=== PATIENT | male | born 1995 | race Two or more races ===

== ENCOUNTER 2020-03-30 19:59 | Emergency (ER) | payer BC ==
--- NOTE | 2020-03-30 20:09 | EDM.PDOC ---
ED HPI GENERAL MEDICAL PROBLEM - General Chief Complaint: Back Pain or Injury Stated Complaint: LOWER BACK PAIN Time Seen by Provider: 03/30/20 20:01 Source of Information: Reports: Patient History Limitations: Reports: No Limitations - History of Present Illness INITIAL COMMENTS - FREE TEXT/NARRATIVE: HISTORY AND PHYSICAL: History of present illness: Patient is a 25-year-old male who presents to the emergency room with complaints of lumbar back pain x2 months. He denies any injury, trauma or falls. Does not recall any events that precipitated the back pain, states it progressively has gotten worse. Pain does not radiate, but physical activity and movement aggravates it. He states over the past few weeks he has been using alcohol to alleviate his discomfort. He denies any weakness, numbness/tingling or saddle paresthesias. Denies any urinary or fecal incontinence. Patient denies any fever, chills, headache, change in vision, syncope or near syncope. Denies any chest pain, neck pain, shortness of breath or cough. Denies any GI or symptoms. Denies any testicular pain, swelling or redness. Review of systems: As per history of present illness and below otherwise all systems reviewed and negative. Past medical history: As per history of present illness and as reviewed below otherwise noncontributory. Surgical history: As per history of present illness and as reviewed below otherwise noncontributory. Social history: See social history for further information Family history: As per history of present illness and as reviewed below otherwise non contributory. Physical exam: General: Well-developed and well-nourished 25-year-old male. Alert and oriented. Nontoxic-appearing and in no acute distress. HEENT: Atraumatic, normocephalic, pupils equal and reactive bilaterally, negative for conjunctival pallor or scleral icterus, mucous membranes moist, TMs normal bilaterally, throat clear, neck supple, nontender, trachea midline. No drooling or trismus noted. No meningeal signs. No hot potato voice noted. Lungs: Clear to auscultation, breath sounds equal bilaterally, chest nontender. Heart: S1S2, regular rate and rhythm without overt murmur Abdomen: Soft, nondistended, nontender. Negative for masses or hepatosplenomegaly. Negative for costovertebral tenderness. Pelvis: Stable nontender. C-spine/Back: No pinpoint vertebral tenderness upon palpation. No crepitus, step-offs or obvious deformities. Bilateral paraspinous muscular tenderness to mid/lumbar region. Low back does feel tight to palpation. Patient is ambulatory into the emergency room without difficulty or deficit. Able to rock back on heels and walk on toes. Denies any urinary or fecal incontinence. Denies any numbness, tingling or saddle paresthesia. No concerns of serious infection, fracture or cord compression, or cauda equina syndrome. Deep tendon reflexes brisk bilaterally. Skin: Intact, warm, dry. No lesions or rashes noted. Extremities: Atraumatic, moves all extremities per self without difficulty or deficits, negative for cords or calf pain. Neurovascular unremarkable. Neuro: Awake, alert, oriented. Cranial nerves II through XII unremarkable. Cerebellum unremarkable. Motor and sensory unremarkable throughout. Exam nonfocal. Notes: Patient states he did not get any relief from the IM injections. Lidocaine patch applied to lumbar region. Vital signs remained stable. X-ray shows minimal narrowing at L5-S1. Otherwise spinal imaging is unremarkable. We did discuss the need for follow-up with his primary care provider, and he may need MRI at some point if discomfort continues. Currently has no neurological symptoms and will be suitable for discharge. Signs and symptoms that would prompt him to return to the emergency room were reviewed and discussed. Follow-up, medication and supportive care measures were reviewed and discussed. Voices understanding and is agreeable to plan of care. Denies any further questions or concerns at this time. Diagnostics: Lumbar x-ray Therapeutics: Norflex and Toradol IM, Lidoderm patch Prescription: Diclofenac, Lidoderm patch Impression: Lumbago Plan: 1. X-ray shows minimal narrowing at L5-S1. No fractures are noted. If you continue to have discomfort you should follow-up with your primary care provider as you may need an MRI. MRIs are not typically done through the emergency room so please follow-up to have this completed if you continue having pain. 2. When resting please lay on a flat firm surface. Limit your immobility to prevent muscle stiffness. Get up to ambulate/move around/gentle stretching multiple times throughout the day. May alternate heat and ice to the painful areas 3. Tylenol as needed for back pain. Diclofenac is an anti-inflammatory so do not take any additional NSAIDs with this medication, such as ibuprofen or Aleve. 4. Please follow-up with your primary care provider as we discussed. 5. Return to the ED as needed and as discussed. Definitive disposition and diagnosis as appropriate pending reevaluation and review of above. back Pain Score (Numeric/FACES): 10 - Related Data Allergies Allergy/AdvReac Type Severity Reaction Status Date / Time bee Allergy Swelling Uncoded 03/30/20 20:19 Home Meds: Home Meds . [No Known Home Meds] 03/30/20 [History] ED ROS GENERAL - Review of Systems Review Of Systems: Comprehensive ROS is negative, except as noted in HPI. ED EXAM,LOWER BACK PAIN/INJURY - Physical Exam Exam: See Below (See dictation) Course - Vital Signs Last Recorded V/S: Last Vital Signs Temp 97.6 F 03/30/20 20:05 Pulse 99 03/30/20 20:05 Resp 18 03/30/20 20:05 BP 137/83 03/30/20 20:05 Pulse Ox 97 03/30/20 20:05 - Orders/Labs/Meds Meds: Medications Discontinued Medications Generic Name Dose Route Start Last Admin Trade Name Marie PRN Reason Stop Dose Admin Ketorolac Tromethamine 60 mg 03/30/20 20:17 03/30/20 20:26 Toradol IM 03/30/20 20:18 60 mg ONETIME ONE Administration Lidocaine 700 mg 03/30/20 21:05 Lidoderm 5% TOP 03/30/20 21:06 ONETIME ONE Orphenadrine Citrate 60 mg 03/30/20 20:17 03/30/20 20:25 Norflex IM 03/30/20 20:18 60 mg ONETIME ONE Administration Departure - Departure Time of Disposition: 21:16 Disposition: Home, Self-Care 01 Clinical Impression: Lumbago Qualifiers: Chronicity: unspecified Back pain laterality: bilateral Sciatica presence: without sciatica Qualified Code(s): M54.5 - Low back pain - Discharge Information Instructions: Acute Back Pain, Adult Referrals: PCP,None [Primary Care Provider] - Forms: ED Department Discharge Additional Instructions: The following information is given to patients seen in the emergency department who are being discharged to home. This information is to outline your options for follow-up care. We provide all patients seen in our emergency department with a follow-up referral. The need for follow-up, as well as the timing and circumstances, are variable depending upon the specifics of your emergency department visit. If you don't have a primary care physician on staff, we will provide you with a referral. We always advise you to contact your personal physician following an emergency department visit to inform them of the circumstance of the visit and for follow-up with them and/or the need for any referrals to a consulting specialist. The emergency department will also refer you to a specialist when appropriate. This referral assures that you have the opportunity for follow-up care with a specialist. All of these measure are taken in an effort to provide you with optimal care, which includes your follow-up. Under all circumstances we always encourage you to contact your private physician who remains a resource for coordinating your care. When calling for follow-up care, please make the office aware that this follow-up is from your recent emergency room visit. If for any reason you are refused follow-up, please contact the [facility] Emergency Department at and asked to speak to the emergency department charge nurse. [facility] [address] [place] [id number] [place] [address] Thank you for choosing the [facility] emergency department in [place] for your medical needs today. It was a pleasure caring for you. You were seen in the emergency department for low back pain. 1. X-ray shows minimal narrowing at L5-S1. No fractures are noted. If you continue to have discomfort you should follow-up with your primary care provider as you may need an MRI. MRIs are not typically done through the emergency room so please follow-up to have this completed if you continue having pain. 2. When resting please lay on a flat firm surface. Limit your immobility to prevent muscle stiffness. Get up to ambulate/move around/gentle stretching multiple times throughout the day. May alternate heat and ice to the painful areas 3. Tylenol as needed for back pain. Diclofenac is an anti-inflammatory so do not take any additional NSAIDs with this medication, such as ibuprofen or Aleve. 4. Please follow-up with your primary care provider as we discussed. 5. Return to the ED as needed and as discussed. Sepsis Event Note (ED) - Focused Exam Vital Signs: Vital Signs Temp Pulse Resp BP Pulse Ox 03/30/20 20:05 97.6 F 99 18 137/83 97
[2020-03-30] MEDS ORDERED: Orphenadrine 60 MG/2 ML Inj IM ONE (20:17)
[2020-03-30] MEDS ORDERED: Ketorolac 60 MG/2 ML SDV IM ONE (20:17)
[2020-03-30] MEDS ORDERED: Lidocaine 5% 700 MG Patch TOP ONE (21:05)
--- NOTE | 2020-03-30 21:09 | CR ---
Lumbar spine: AP, lateral and coned-down lateral view centered to the lumbosacral junction were obtained. Vertebral body heights are maintained. Minimal disc space narrowing at L5-S1 is seen. Other disc spaces are preserved. Pedicles are intact. Visualized transverse and spinous processes are intact. No subluxation or acute fracture is seen. Impression: 1. Minimal narrowing at L5-S1. 2. 3 view lumbar spine study is otherwise unremarkable. Diagnostic code #2 Study was dictated in MDT
== END 2020-03-30 21:30 | disposition home or self-care (01) ==
LOC: MW.ED 19:59
DX: M54.5 Low back pain (principal); Z91.030 Bee allergy status
CPT/HCPCS: 72100; 96372; 99283; A9270; J1885; J2360